=== PATIENT | female | born 1955 | race Asian ===

== ENCOUNTER 2020-04-30 08:50 | Observation (INO) | payer MEDICAID ==
--- NOTE | 2020-04-30 09:45 | ER Document Report ---
ED Medical Screen (RME) - General Chief Complaint: Chest Pain Stated Complaint: CHEST PAIN Time Seen by Provider: 04/30/20 09:42 Primary Care Provider: MALACHI STEWART PA [PHYSICIAN RADIATION ENGINEER] - Follow up as needed Notes: 64-year-old female Togolese speaking only presents with 3 weeks of intermittent chest pain anterior radiating to the shoulder blade which is both at rest and with exertion last this morning. No vomiting or shortness of breath. Does not have a history of cardiac issues and has not been tested. 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 She was seen by primary care last week and told everything was fine but does not seem to have had a stress or cast. - Related Data Allergies/Adverse Reactions: No Known Allergies Allergy (Verified 04/30/20 10:34) Past Medical History - General Information source: Patient Review of Systems - Review of Systems Notes: REVIEW OF SYSTEMS GEN: Denies fever, chills, weight loss ENT: Denies sore throat, nasal discharge, ear pain EYES: Denies blurry vision, eye pain, discharge CV: Pressure and pain RESP: Denies cough, shortness of breath, wheezing GI: Denies abdominal pain, nausea, vomiting, diarrhea MSK: Denies joint pain/swelling, edema, SKIN: Denies rash, skin lesions LYMPH: Denies swollen glands/lymph nodes NEURO: Occasional dizziness PSYCH: Denies depression, suicidal or homicidal ideation PHYSICAL EXAMINATION General: No acute distress, well-nourished Head: Atraumatic, normocephalic ENT: Mouth normal, oropharynx moist, no exudates or tonsillar enlargement Eyes: Conjunctiva normal, pupils equal, lids normal Neck: No JVD, supple, no guarding CVS: Normal rate, regular rhythm, no murmurs Resp: No resp distress, equal and normal breath sounds bilaterally GI: Nondistended, soft, no tenderness to palpation, no rebound or guarding Ext: No deformities, no edema, normal range of motion in upper and lower ext Back: No CVA or midline TTP Skin: No rash, warm Lymphatic: No lymphadeopathy noted Neuro: Awake, alert. Face symmetric. GCS 15. Physical Exam - Vital signs Vitals: Temp Pulse Resp BP Pulse Ox 98.7 F 65 18 136/66 H 97 04/30/20 08:58 04/30/20 08:58 04/30/20 08:58 04/30/20 08:58 04/30/20 08:58 Course - Re-evaluation Re-evalutation: 04/30/20 10:03 Chest pressure and pain with dizziness for several weeks in the setting of a c ouple of risk factors for ACS. Exam normal doubt stroke. Rhythm is normal, and initial EKG shows no ischemia whatsoever. Heart score is 34 depending on the history. Will check troponin, single should do given the time course of the pain and then will consult cardiology for likely outpatient stress versus admission and stress. - Vital Signs Vital signs: Temp Pulse Resp BP Pulse Ox 98.7 F 65 15 135/83 H 97 04/30/20 08:58 04/30/20 08:58 04/30/20 12:01 04/30/20 12:00 04/30/20 12:01 - Laboratory Result Diagrams: 04/30/20 09:51 04/30/20 09:51 Laboratory results interpreted by me: 04/30/20 04/30/20 09:51 09:51 RDW 14.2 H Eos % (Auto) 7.6 H Glucose 267 H Doctor's Discharge - Discharge Clinical Impression: Unstable angina Condition: Good Disposition: ADMITTED OBSERVATION Instructions: Angina Episode ([facility]) Referrals: MALACHI STEWART PA [PHYSICIAN RADIATION ENGINEER] - Follow up as needed
[2020-04-30 10:43] LABS: ABSOLUTE BASOPHILS # (AUTO) 0.1 10^3/uL (0.0-0.2); ABSOLUTE EOSINOPHILS # (AUTO) 0.4 10^3/uL (0.0-0.6); ABSOLUTE LYMPHOCYTES (AUTO) 1.9 10^3/uL (0.5-4.7); ABSOLUTE MONOCYTES (AUTO) 0.2 10^3/uL (0.1-1.4); ABSOLUTE NEUT (AUTO) 2.2 10^3/uL (1.7-8.2); BASOPHILS % (AUTO) 1.6 % (0-2); EOSINOPHILS % (AUTO) 7.6 % (0-6); HEMATOCRIT 41.9 % (36.0-47.0); HEMOGLOBIN 14.5 g/dL (12.0-15.5); LYMPHOCYTES % (AUTO) 40.4 % (13-45); MEAN CORPUSCULAR HEMOGLOBIN 30.8 pg (27.0-33.4); MEAN CORPUSCULAR HGB CONC 34.6 g/dL (32.0-36.0); MEAN CORPUSCULAR VOLUME 89 fl (80-97); MONOCYTES % (AUTO) 5.1 % (3-13); PLATELET COUNT 208 10^3/uL (150-450); RED BLOOD COUNT 4.72 10^6/uL (3.72-5.28); RED CELL DISTRIBUTION WIDTH 14.2 % (11.5-14.0); SEGMENTED NEUTROPHILS % (AUTO) 45.3 % (42-78); TOTAL CELLS COUNTED % (AUTO) 100 %; WHITE BLOOD COUNT 4.8 10^3/uL (4.0-10.5)
[2020-04-30 10:54] LABS: ALBUMIN 4.4 g/dL (3.5-5.0); ALKALINE PHOSPHATASE 84 U/L (38-126); ANION GAP 11 (5-19); ASPARTATE AMINO TRANSFERASE 34 U/L (14-36); BILIRUBIN,DIRECT 0.2 mg/dL (0.0-0.4); BILIRUBIN,TOTAL 0.5 mg/dL (0.2-1.3); BLOOD UREA NITROGEN 18 mg/dL (7-20); CALCIUM 9.2 mg/dL (8.4-10.2); CARBON DIOXIDE 26 mmol/L (22-30); CHLORIDE 102 mmol/L (98-107); CREATINE KINASE 60 U/L (30-135); GLUCOSE 267 mg/dL (75-110); POTASSIUM 4.2 mmol/L (3.6-5.0); TOTAL PROTEIN 7.6 g/dL (6.3-8.2)
--- NOTE | 2020-04-30 10:55 | RADIOLOGY REPORT (SQ) ---
EXAM DESCRIPTION: CHEST SINGLE VIEW IMAGES COMPLETED DATE/TIME: 04/30/2020 10:45 am REASON FOR STUDY: chest pain COMPARISON: None. EXAM PARAMETERS: NUMBER OF VIEWS: One view. TECHNIQUE: Single frontal radiographic view of the chest acquired. RADIATION DOSE: NA LIMITATIONS: None. FINDINGS: LUNGS AND PLEURA: No opacities, masses or pneumothorax. No pleural effusion. MEDIASTINUM AND HILAR STRUCTURES: No masses. Contour normal. HEART AND VASCULAR STRUCTURES: Heart normal in size. Normal vasculature. BONES: No acute findings. HARDWARE: None in the chest. OTHER: No other significant finding. IMPRESSION: 1. NO ACUTE RADIOGRAPHIC FINDING IN THE CHEST. TECHNICAL DOCUMENTATION: JOB ID: [id number] 2010 [employer]- All Rights Reserved Reading location - IP/workstation name: [email or web address]
[2020-04-30 11:02] LABS: CREATINE KINASE MB 0.62 ng/mL (<4.55)
[2020-04-30 11:13] LABS: TROPONIN I < 0.012 ng/mL
--- NOTE | 2020-04-30 13:32 | ER Document Report ---
ED General - General Chief Complaint: Chest Pain Stated Complaint: CHEST PAIN Time Seen by Provider: 04/30/20 09:42 Primary Care Provider: MALACHI STEWART PA [PHYSICIAN ASSEMBLER GARMENT FORM] - Follow up as needed Notes: 64-year-old female Ethiopian speaking only presents with 3 weeks of intermittent chest pain anterior radiating to the shoulder blade which is both at rest and with exertion last this morning. No vomiting or shortness of breath. Does not have a history of cardiac issues and has not been tested. 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 She was seen by primary care last week and told everything was fine but does not seem to have had a stress or cast. - Related Data Allergies/Adverse Reactions: No Known Allergies Allergy (Verified 04/30/20 10:34) Past Medical History - General Information source: Patient - Social History Smoking Status: Never Smoker Family History: None Review of Systems - Review of Systems Notes: REVIEW OF SYSTEMS GEN: Denies fever, chills, weight loss ENT: Denies sore throat, nasal discharge, ear pain EYES: Denies blurry vision, eye pain, discharge CV: Pain RESP: Denies cough, shortness of breath, wheezing GI: Denies abdominal pain, nausea, vomiting, diarrhea MSK: Denies joint pain/swelling, edema, SKIN: Denies rash, skin lesions LYMPH: Denies swollen glands/lymph nodes NEURO: Denies headache, focal weakness or numbness, dizziness PSYCH: Denies depression, suicidal or homicidal ideation PHYSICAL EXAMINATION General: No acute distress, well-nourished Head: Atraumatic, normocephalic ENT: Mouth normal, oropharynx moist, no exudates or tonsillar enlargement Eyes: Conjunctiva normal, pupils equal, lids normal Neck: No JVD, supple, no guarding CVS: Normal rate, regular rhythm, no murmurs Resp: No resp distress, equal and normal breath sounds bilaterally GI: Nondistended, soft, no tenderness to palpation, no rebound or guarding Ext: No deformities, no edema, normal range of motion in upper and lower ext Back: No CVA or midline TTP Skin: No rash, warm Lymphatic: No lymphadeopathy noted Neuro: Awake, alert. Face symmetric. GCS 15. Physical Exam - Vital signs Vitals: Temp Pulse Resp BP Pulse Ox 98.7 F 65 18 136/66 H 97 04/30/20 08:58 04/30/20 08:58 04/30/20 08:58 04/30/20 08:58 04/30/20 08:58 Course - Re-evaluation Re-evalutation: 04/30/20 13:32 Bleeding chest pain heart score 4 EKG Trope negative Discussed with Clark, would prefer admitted for stress tomorrow Discussed with hospitalist - Vital Signs Vital signs: Temp Pulse Resp BP Pulse Ox 98.7 F 65 15 135/83 H 97 04/30/20 08:58 04/30/20 08:58 04/30/20 12:01 04/30/20 12:00 04/30/20 12:01 - Laboratory Result Diagrams: 04/30/20 09:51 04/30/20 09:51 Laboratory results interpreted by me: 04/30/20 04/30/20 09:51 09:51 RDW 14.2 H Eos % (Auto) 7.6 H Glucose 267 H - Diagnostic Test Radiology reviewed: Image reviewed, Reports reviewed - EKG Interpretation by Me EKG shows normal: Sinus rhythm Rate: Normal Rhythm: NSR - No old. No ischemia Discharge - Discharge Clinical Impression: Unstable angina Condition: Good Disposition: ADMITTED OBSERVATION Admitting Provider: DEAN Unit Admitted: Telemetry Instructions: Angina Episode ([facility]) Referrals: MALACHI STEWART PA [PHYSICIAN ASSEMBLER GARMENT FORM] - Follow up as needed
[2020-04-30] MEDS ORDERED: ACETAMINOPHEN 650 MG SUPP.RECT PR PRN (15:59)
[2020-04-30] MEDS ORDERED: ONDANSETRON 4 MG TAB.RAPDIS PO PRN (15:59)
[2020-04-30] MEDS: FAMOTIDINE INJ/PF 20 MG/2 ML SDV IV SCH ×2 (16:35→22:43)
--- NOTE | 2020-04-30 17:12 | EKG REPORT ---
SEVERITY:- NORMAL ECG - SINUS RHYTHM : Confirmed by: Alis Raya MD 30-Apr-2020 17:10:56
[2020-04-30 19:41] LABS: URINE AMPHETAMINES SCREEN NEGATIVE; URINE BARBITURATES SCREEN NEGATIVE; URINE BENZODIAZEPINES SCREEN NEGATIVE; URINE COCAINE SCREEN NEGATIVE; URINE MARIJUANA (THC) SCREEN NEGATIVE; URINE METHADONE SCREEN NEGATIVE; URINE PHENCYCLIDINE SCREEN NEGATIVE
--- NOTE | 2020-04-30 21:00 | PDOC H&P ---
History of Present Illness Admission Date/PCP: 04/30/20 13:44 FAMILIA ANSARI Patient complains of: chest pain, heart burn History of Present Illness: CECILIA COTE is a 64 year old female, lebanese speaking, hx of asthma, HTN, who came to the ED due to midstrenal chest pain, heartburn symptoms that has been going on for 1 week . 1 week prior to admission patient started to experience heartburn, aggravated by spicy food intake, also complaining of midsternal chest pain associated with a heartburn effort related. She tried to take some antacids which she said provided moderate relief. There is no family history of coronary artery disease, is a non-smoker nonalcoholic drinker, no prior history of ID. She was admitted for planned stress test to rule out coronary artery disease as a cause of chest pain. Past Medical History Cardiac Medical History: Reports: None, Hypertension Pulmonary Medical History: Reports: Asthma Endocrine Medical History: Reports: Diabetes Mellitus Type 2 Social History Information Source: Patient Lives with: Family Smoking Status: Never Smoker Frequency of Alcohol Use: Rare Drugs: None Family History Family History: None, Reviewed & Not Pertinent Parental Family History Reviewed: Yes Children Family History Reviewed: Yes Sibling(s) Family History Reviewed.: Yes Medication/Allergy Home Medications: Ergocalciferol (Vitamin D2) [Drisdol 50,000 Unit (1.25MG) Capsule] 50,000 unit PO .QWEEKLY 04/30/20 Fluticasone/Salmeterol [Advair 250-50 Diskus 14 Dose/Diskus] 1 inh IH Q12 04/30/20 Glimepiride [Amaryl 1 mg Tablet] 1 mg PO QAM 04/30/20 Losartan Potassium [Cozaar 50 mg Tablet] 50 mg PO DAILY 04/30/20 Metformin HCl [Glucophage 500 mg Tablet] 1,000 mg PO BIDACBS 04/30/20 Allergies/Adverse Reactions: No Known Allergies Allergy (Verified 04/30/20 10:34) Review of Systems Gastrointestinal: PRESENT: abdominal pain, heartburn. ABSENT: bloating, coffee ground emesis, diarrhea Physical Exam Vital Signs: Temp Pulse Resp BP Pulse Ox 98.7 F 65 17 128/72 H 96 04/30/20 08:58 04/30/20 08:58 04/30/20 17:00 04/30/20 17:00 04/30/20 17:00 Intake & Output 04/29/20 04/30/20 05/01/20 06:59 06:59 06:59 Weight 75.6 kg General appearance: PRESENT: no acute distress, cooperative Head exam: PRESENT: atraumatic, normocephalic Mouth exam: PRESENT: moist Neck exam: PRESENT: full ROM. ABSENT: JVD Respiratory exam: PRESENT: clear to auscultation benjamin, symmetrical, unlabored Cardiovascular exam: PRESENT: RRR, +S1, +S2 Pulses: PRESENT: normal radial pulses GI/Abdominal exam: PRESENT: normal bowel sounds, soft, tenderness Extremities exam: PRESENT: full ROM Musculoskeletal exam: PRESENT: full ROM Neurological exam: PRESENT: alert, awake, oriented to person, oriented to place, oriented to time Results Laboratory Results: 04/30/20 09:51 04/30/20 09:51 04/30/20 04/30/20 09:51 09:51 WBC 4.8 RBC 4.72 Hgb 14.5 Hct 41.9 MCV 89 MCH 30.8 MCHC 34.6 RDW 14.2 H Plt Count 208 Seg Neutrophils % 45.3 Sodium 138.6 Potassium 4.2 Chloride 102 Carbon Dioxide 26 Anion Gap 11 BUN 18 Creatinine 0.83 Est GFR ( Amer) > 60 Glucose 267 H Calcium 9.2 Total Bilirubin 0.5 AST 34 Alkaline Phosphatase 84 Total Protein 7.6 Albumin 4.4 04/30/20 04/30/20 04/30/20 09:51 09:51 12:54 Creatine Kinase 60 CK-MB (CK-2) 0.62 Troponin I < 0.012 < 0.012 Impressions: Chest X-Ray 04/30/20 10:22 IMPRESSION: 1. NO ACUTE RADIOGRAPHIC FINDING IN THE CHEST. Assessment and Plan - Diagnosis (1) Unstable angina Is this a current diagnosis for this admission?: Yes Plan: -Came in due to midsternal chest pain associated with heartburn aggravated by spicy food -She does say chest pain is effort related denies shortness of breath no palpitations -She is a known diabetic -Heart Score 3 - admitted for stress test tomorrow -Started on aspirin (2) Heartburn symptom Is this a current diagnosis for this admission?: Yes Plan: -Heart symptoms aggravated by eating spicy food -Started on Pepcid IV -H. pylori test to treat if positive (3) Asthma Qualifiers: Asthma severity: mild Asthma persistence: unspecified Asthma complication type: unspecified Qualified Code(s): J45.909 - Unspecified asthma, uncomplicated Is this a current diagnosis for this admission?: No Plan: -Advair resumed - Time Time Spent with patient: 25-34 minutes Medications reviewed and adjusted accordingly: Yes Anticipated Discharge Disposition: Home, Self Care Anticipated Discharge Timeframe: to be determined - Inpatient Certification Medical Necessity: Need For Continuous Telemetry Monitoring, Other
[2020-04-30] MEDS ORDERED: (PENDING PHARMACY ID) (Fluticasone/Salmeterol 1 INH) IH SCH (22:00)
[2020-04-30] MEDS: HEPARIN SOD (PORCINE) 5,000 UNIT/ML 1 ML VIAL SUBCUT SCH (22:42)
[2020-05-01] MEDS: HEPARIN SOD (PORCINE) 5,000 UNIT/ML 1 ML VIAL SUBCUT SCH (05:21)
[2020-05-01 09:04] VITALS: BP 141/68
[2020-05-01] MEDS ORDERED: FLUTICASONE/VILANTEROL 200-25 MCG/DOSE IH SCH (10:00)
[2020-05-01] MEDS: FAMOTIDINE INJ/PF 20 MG/2 ML SDV IV SCH (10:11)
--- NOTE | 2020-05-01 10:56 | PDOC DISCHARGE SUMMARY ---
Impression - Admit/DC Date/PCP Admission Date/Primary Care Provider: 04/30/20 13:44 FAMILIA ANSARI Discharge Date: 05/01/20 - Discharge Diagnosis (1) Chest pain Is this a current diagnosis for this admission?: Yes (2) GERD (gastroesophageal reflux disease) Is this a current diagnosis for this admission?: Yes (3) Hyperglycemia due to type 2 diabetes mellitus Is this a current diagnosis for this admission?: Yes (4) HTN (hypertension) Is this a current diagnosis for this admission?: Yes (5) Heartburn symptom Is this a current diagnosis for this admission?: Yes - Additional Information Resuscitation Status: Full Code Discharge Diet: Cardiac, Diabetic Discharge Activity: Activity As Tolerated, Balance Activity w/Rest Referrals: MALACHI STEWART PA [Primary Care Provider] - Follow up as needed (LEFT MESSAGE FOR PROVIDER TO CONTACT PATIENT FOR APPOINTMENT) Prescriptions: Sucralfate [Carafate 1 gm Tablet] 1 gm PO ACHS 15 Days #60 tablet Pantoprazole Sodium 40 mg PO DAILY 15 Days #15 tablet. Home Medications: Ergocalciferol (Vitamin D2) [Drisdol 50,000 unit (1.25MG) Capsule] 50,000 unit PO .QWEEKLY 04/30/20 Fluticasone/Salmeterol [Advair 250-50 Diskus 14 Dose/Diskus] 1 inh IH Q12 04/30/20 Glimepiride [Amaryl 1 mg Tablet] 1 mg PO QAM 04/30/20 Losartan Potassium [Cozaar 50 mg Tablet] 50 mg PO DAILY 04/30/20 Metformin HCl [Glucophage 500 mg Tablet] 1,000 mg PO BIDACBS 04/30/20 Fluticasone/Vilanterol [Breo 200-25 Mcg Ellipta 14 Dose/Dpi] 1 inh IH DAILY inhaler 05/01/20 Pantoprazole Sodium 40 mg PO DAILY 15 Days #15 tablet. 05/01/20 Sucralfate [Carafate 1 gm Tablet] 1 gm PO ACHS 15 Days #60 tablet 05/01/20 History of Present Illiness History of Present Illness: CECILIA COTE is a 64 year old female, south korean speaking, hx of asthma, HTN, who came to the ED due to midstrenal chest pain, heartburn symptoms that has been going on for 1 week . 1 week prior to admission patient started to experience heartburn, aggravated by spicy food intake, also complaining of midsternal chest pain associated with a heartburn effort related. She tried to take some antacids which she said provided moderate relief. There is no family history of coronary artery disease, is a non-smoker nonalcoholic drinker, no prior history of NH. She was admitted for planned stress test to rule out coronary artery disease as a cause of chest pain. Hospital Course Hospital Course: The patient was admitted for chest pain that was noncardiac. It is likely reflux and esophagitis. Her troponins were negative. She declined a stress test today and was discharged. Physical Exam Vital Signs: Temp Pulse Resp BP Pulse Ox 97.4 F 62 17 141/68 H 96 05/01/20 09:00 05/01/20 09:00 05/01/20 09:00 05/01/20 09:00 05/01/20 09:00 Intake & Output 04/30/20 05/01/20 05/02/20 06:59 06:59 06:59 Weight 75.6 kg General appearance: PRESENT: no acute distress Respiratory exam: PRESENT: clear to auscultation benjamin, symmetrical, unlabored. ABSENT: rales, rhonchi, tachypnea, wheezes Cardiovascular exam: PRESENT: RRR, +S1, +S2 GI/Abdominal exam: PRESENT: normal bowel sounds, soft. ABSENT: tenderness Extremities exam: ABSENT: pedal edema Results Laboratory Results: WBC 4.8 10^3/uL (4.0-10.5) 04/30/20 09:51 RBC 4.72 10^6/uL (3.72-5.28) 04/30/20 09:51 Hgb 14.5 g/dL (12.0-15.5) 04/30/20 09:51 Hct 41.9 % (36.0-47.0) 04/30/20 09:51 MCV 89 fl (80-97) 04/30/20 09:51 MCH 30.8 pg (27.0-33.4) 04/30/20 09:51 MCHC 34.6 g/dL (32.0-36.0) 04/30/20 09:51 RDW 14.2 % (11.5-14.0) H 04/30/20 09:51 Plt Count 208 10^3/uL (150-450) 04/30/20 09:51 Lymph % (Auto) 40.4 % (13-45) 04/30/20 09:51 [place] % (Auto) 5.1 % (3-13) 04/30/20 09:51 Eos % (Auto) 7.6 % (0-6) H 04/30/20 09:51 Baso % (Auto) 1.6 % (0-2) 04/30/20 09:51 Absolute Neuts (auto) 2.2 10^3/uL (1.7-8.2) 04/30/20 09:51 Absolute Lymphs (auto) 1.9 10^3/uL (0.5-4.7) 04/30/20 09:51 Absolute Monos (auto) 0.2 10^3/uL (0.1-1.4) 04/30/20 09:51 Absolute Eos (auto) 0.4 10^3/uL (0.0-0.6) 04/30/20 09:51 Absolute Basos (auto) 0.1 10^3/uL (0.0-0.2) 04/30/20 09:51 Seg Neutrophils % 45.3 % (42-78) 04/30/20 09:51 Sodium 138.6 mmol/L (137-145) 04/30/20 09:51 Potassium 4.2 mmol/L (3.6-5.0) 04/30/20 09:51 Chloride 102 mmol/L (98-107) 04/30/20 09:51 Carbon Dioxide 26 mmol/L (22-30) 04/30/20 09:51 Anion Gap 11 (5-19) 04/30/20 09:51 BUN 18 mg/dL (7-20) 04/30/20 09:51 Creatinine 0.83 mg/dL (0.52-1.25) 04/30/20 09:51 Est GFR ( Amer) > 60 (>60) 04/30/20 09:51 Est GFR (MDRD) Non-Af > 60 (>60) 04/30/20 09:51 Glucose 267 mg/dL (75-110) H 04/30/20 09:51 POC Glucose 139 mg/dL (70-110) H 04/30/20 16:33 Calcium 9.2 mg/dL (8.4-10.2) 04/30/20 09:51 Total Bilirubin 0.5 mg/dL (0.2-1.3) 04/30/20 09:51 Direct Bilirubin 0.2 mg/dL (0.0-0.4) 04/30/20 09:51 Neonat Total Bilirubin Not Reportable 04/30/20 09:51 Neonat Direct Bilirubin Not Reportable 04/30/20 09:51 Neonat Indirect Bili Not Reportable 04/30/20 09:51 AST 34 U/L (14-36) 04/30/20 09:51 ALT 28 U/L (<35) 04/30/20 09:51 Alkaline Phosphatase 84 U/L (38-126) 04/30/20 09:51 Creatine Kinase 60 U/L (30-135) 04/30/20 09:51 CK-MB (CK-2) 0.62 ng/mL (<4.55) 04/30/20 09:51 Troponin I < 0.012 ng/mL 05/01/20 08:31 Total Protein 7.6 g/dL (6.3-8.2) 04/30/20 09:51 Albumin 4.4 g/dL (3.5-5.0) 04/30/20 09:51 Urine Opiates Screen NEGATIVE 04/30/20 13:03 Urine Methadone Screen NEGATIVE 04/30/20 13:03 Ur Barbiturates Screen NEGATIVE 04/30/20 13:03 Ur Phencyclidine Scrn NEGATIVE 04/30/20 13:03 Ur Amphetamines Screen NEGATIVE 04/30/20 13:03 U Benzodiazepines Scrn NEGATIVE 04/30/20 13:03 Urine Cocaine Screen NEGATIVE 04/30/20 13:03 U Marijuana (THC) Screen NEGATIVE 04/30/20 13:03 04/30/20 04/30/20 05/01/20 09:51 12:54 08:31 CK-MB (CK-2) 0.62 Troponin I < 0.012 < 0.012 < 0.012 Impressions: Chest X-Ray 04/30/20 10:22 IMPRESSION: 1. NO ACUTE RADIOGRAPHIC FINDING IN THE CHEST. Plan Health Concerns: Likely esophagitis/gastritis. May need repeat endoscopy. Had one last year. Plan of Treatment: Start Protonix and Carafate. 2-week supply given. Instructed patient to also add Pepcid or Zantac if there is no improvement in 5 to 7 days. Goals: Control of likely esophagitis Time Spent: Less than 30 Minutes Stroke Is this a Stroke Patient?: No Acute Heart Failure - Is this a Heart Failure Patient?: No
== END 2020-05-01 11:30 | disposition home or self-care (01) ==
LOC: ER 08:50 → EH 13:44 → 4N 19:25
PROVIDERS: ADMIT Internal Medicine; ATTEND Hospitalist
DX: R07.89 Other chest pain (principal); K21.9 Gastro-esophageal reflux disease without esophagitis; E11.65 Type 2 diabetes mellitus with hyperglycemia; I10 Essential (primary) hypertension; R12 Heartburn; J45.909 Unspecified asthma, uncomplicated; R10.9 Unspecified abdominal pain; Z79.899 Other long term (current) drug therapy; Z79.84 Long term (current) use of oral hypoglycemic drugs; Z79.51 Long term (current) use of inhaled steroids
CPT/HCPCS: 93005; 99285; 36415 ×2; 82553; 82962; 82550; 85025; 80053; 84484 ×2; 80307; 71045; 93010; G0378 ×3; S0028 ×2; J3490